=== PATIENT | male | born 1980 | race Caucasian/White ===

== ENCOUNTER 2019-05-11 13:26 | Emergency (ER) | payer OTHER ==
[~2019-05-11] VITALS: Ht 175.3 cm; Wt 96.0 kg
[2019-05-11 13:35] VITALS: BP 120/100
--- NOTE | 2019-05-11 13:51 | NUR ---
L calf redness & pain since extended travel 2 days ago. Seen by [facility] & [facility] ordered. Pt aware of POC, no SOB.
== END 2019-05-11 15:01 | disposition home or self-care (01) ==
LOC: EDBD 13:26 → ED 14:30
DX: M79.662 Pain in left lower leg (principal)
CPT/HCPCS: 99284